=== PATIENT | female | born 1940 | race Caucasian/White ===

== ENCOUNTER 2022-09-05 10:14 | Outpatient (CLI) | payer MEDICARE, SELFPAY ==
[2022-09-05 12:50] LABS: Cholesterol 224 mg/dL (200); Glucose 83 mg/dL (74-106); High Density Lipoprotein 64 mg/dL; Triglycerides 66 mg/dL; Very Low Density Lipoprotein 13 mg/dL (5-40)
== END 2022-09-05 23:59 | disposition home or self-care (01) ==
PROVIDERS: PCP Family Medicine; Referring Provider Family Medicine; Visit Provider Family Medicine
DX: Z13.6 Encounter for screening for cardiovascular disorders (principal)
CPT/HCPCS: 36415; 80061; 82947

== ENCOUNTER → 2022-09-17 | Outpatient (CLI) | payer MEDICARE, SELFPAY ==
--- NOTE | 2022-09-17 13:16 | BI_ITS ---
MAMMOGRAPHY - BILATERAL SCREENING REASON FOR EXAM: Female, 82 years old. Routine annual screening examination. PERTINENT HISTORY: Sister with breast cancer. Mother with breast cancer. TECHNIQUE: Digital bilateral breast maureen (3D mammographic acquisition) in the CC and MLO projections. 2-D mediolateral oblique (MLO) and craniocaudad (CC) views of both breasts were obtained. CAD: Full Field Digital Mammography with Computer Added Detection was performed. COMPARISON: Comparison is made with prior outside examination dated 03/26/2021. FINDINGS: Breast Composition: The breasts are heterogeneously dense, which may obscure small masses. Possible 5.7 mm well-defined nodule in the deep central slightly lateral aspect of the left breast. Correlation with ultrasound is recommended. No other significant abnormalities are identified. BI/SCRN MAMM (CAD)W/MAUREEN BILAT IMPRESSION: Possible 5.7 mm well-defined nodule in the deep central slightly lateral aspect of the left breast. Correlation with ultrasound is recommended. ASSESSMENT CATEGORY: BIRADS Category 0: Incomplete. Need additional imaging evaluation. A letter regarding these results will be sent to the patient by the facility within 30 days. Approximately 10% of breast cancers are not detected by mammography. A normal mammogram should not delay biopsy of a clinically suspicious abnormality. [id number] Electronically Signed: Crow Nolasco MD at 14:42 EST ,
== END | disposition home or self-care (01) ==
LOC: OPBI 13:14
PROVIDERS: PCP Family Medicine; Visit Provider Family Medicine
DX: Z12.31 Encounter for screening mammogram for malignant neoplasm of breast (principal)
CPT/HCPCS: 77063; 77067

== ENCOUNTER → 2022-09-26 | Outpatient (CLI) | payer MEDICARE, SELFPAY ==
--- NOTE | 2022-09-26 13:34 | US_ITS ---
STUDY: ULTRASOUND BREAST - LEFT REASON FOR EXAM: Female, 82 years old. Abnormal screening mammogram. TECHNIQUE: Axial and longitudinal images of the LEFT breast were performed with a high resolution ultrasound transducer. # OF IMAGES: 11 COMPARISON: Comparison is made with prior mammogram dated 09/17/2022. FINDINGS: LEFT Breast: The mammographic abnormality corresponds to a 5 mm x 5 mm x 4 mm cyst at the 3 o''clock position of the breast at 2 cm from the nipple. US/Breast Limited Unilateral IMPRESSION: The mammographic abnormality corresponds to a 5 mm x 5 mm x 4 mm cyst at the 2 o''clock position of the breast at 2 cm from the nipple. ASSESSMENT CATEGORY: BIRADS Category 2: Benign. A letter regarding these results will be sent to the patient by the facility within 30 days. Electronically Signed: Crow Nolasco MD at 14:15 EST ,
== END | disposition home or self-care (01) ==
PROVIDERS: PCP Family Medicine; Visit Provider Family Medicine
DX: R92.8 Other abnormal and inconclusive findings on diagnostic imaging of breast (principal)
CPT/HCPCS: 76642

== ENCOUNTER → 2024-02-05 | Outpatient (CLI) | payer MEDICARE, SELFPAY ==
--- NOTE | 2024-02-05 08:26 | BI_ITS ---
MAMMOGRAPHY - BILATERAL SCREENING 3-D TOMOSYNTHESIS REASON FOR EXAM: Female, 83 years old. screening PERTINENT HISTORY: No significant family history. TECHNIQUE: 2-D mammograms and 3-D Tomosynthesis of the breast (s) were performed. CAD was performed. COMPARISON: 09/17/2022 FINDINGS: The breast composition is heterogeneously dense that can obscure small breast masses. Scattered benign calcifications are seen. No dense spiculated masses or suspicious microcalcifications are identified. No architectural distortion is identified. There is no skin thickening or retraction. There has been no significant change since the prior study. BI/SCRN MAMM (CAD)W/MAUREEN BILAT IMPRESSION: No mammographic signs of malignancy. Routine yearly mammograms recommended. ASSESSMENT CATEGORY: BIRADS Category 1: Negative. A letter regarding these results will be sent to the patient by the facility within 30 days. FOLLOW UP RECOMMENDATION: Yearly follow up mammogram recommended. (A) Approximately 10% of breast cancers are not detected by mammography. A normal mammogram should not delay biopsy of a clinically suspicious abnormality. Electronically Signed: Ant Dawkins MD at 13:36 EDT ,
== END | disposition home or self-care (01) ==
LOC: OPBI 08:25
PROVIDERS: PCP Family Medicine; Referring Provider Family Medicine; Visit Provider Family Medicine
DX: Z12.31 Encounter for screening mammogram for malignant neoplasm of breast (principal)
CPT/HCPCS: 77063; 77067

== ENCOUNTER → 2025-01-17 | Outpatient (CLI) | payer MEDICARE, SELFPAY ==
--- NOTE | 2025-01-17 14:51 | RAD_ITS ---
PROCEDURE: L/S SPINE MIN 4 VIEWS 01/17/2025 REASON FOR EXAM: LOW BACK PAIN TECHNIQUE: Standing AP view(s) of the thoracic and lumbar spine. Five views. COMPARISON: None. 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 Exaggerated lumbar lordosis. There are diffuse spondylotic changes. Findings are demonstrated to by diffuse disc space narrowing, osteophyte formation and degenerative endplate sclerosis. There is diffuse facet joint arthropathy with secondary bilateral neural foramina narrowing. No fracture or dislocation is seen. No aggressive lytic or blastic bony lesion is noted. RAD/L/S Spine Min 4 Views IMPRESSION: Spondylosis. 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 Reading Location: [facility]
[2025-01-17 15:37] LABS: Absolute Lymphocyte Count 2.01 X10^3/uL (0.83-4.51); Absolute Neutrophil Count 4.4 X10^3/uL (2.0-7.7); Basophil# 0.05 X10^3/uL; Basophil% 0.7 % (0-1); Eosinophil# 0.31 X10^3/uL; Eosinophils% 4.1 % (0-5); Hematocrit 43.6 % (37-47); Hemoglobin 14.3 g/dL (12.0-15.0); Lymphocyte # 2.01 X10^3/ul (0.83-4.51); Lymphocyte % 26.8 % (19-41); Mean Corp Hgb Conc 32.8 g/dL (32-36); Mean Corpuscular Hgb 32.4 pg (27.0-32.0); Mean Corpuscular Volume 98.9 fL (81-99); Mean Platelet Vol. 9.8 fl (6.2-12.0); Monocyte# 0.72 X10^3/uL; Monocyte% 9.6 % (0-10); NRBC Flagged by Analyzer 0 % (0-5); Neutrophil # 4.38 X10^3/uL (2.7-7.7); Neutrophil % 58.4 % (47-70); Platelet Count 238 K/mm3 (150-450); RBC Distribution Width SD 47.5 fl (35.1-43.9); Red Blood Count 4.41 M/mm3 (4.2-5.4); White Blood Count 7.5 K/mm3 (4.4-11.0)
[2025-01-17 16:36] LABS: Hepatitis C Antibody Nonreactive (Nonreactive); Vitamin D,25 Hydroxy 37.1 ng/mL (30-100)
[2025-01-17 16:37] LABS: ALB/GLOB Ratio 1.5 RATIO (0.9-2.4); AST(SGOT) 30 U/L (<=31); Alanine Aminotransfer ALT/SGPT 15 U/L (<=34); Albumin, Serum 4.4 g/dL (3.4-4.8); Alkaline Phosphatase 97 U/L (35-104); Anion Gap 11 (5-15); BUN 20 mg/dL (4-19); BUN/Creat Ratio 27.3 RATIO (10-20); Calcium,Total 9.6 mg/dL (7.6-11.0); Chloride 105 mmol/L (98-108); Creatinine, Serum 0.72 mg/dL (0.70-1.20); EST Glomerular Filtration Rate 83 (>60); Globulin 2.9 g/dL (2.2-4.2); Glucose 96 mg/dL (70-99); Potassium 4.3 mmol/L (3.3-5.1); Protein, Total 7.3 g/dL (5.9-8.4); Sodium Level 140 mmol/L (133-145); Total Bilirubin 0.39 mg/dL (0.00-1.30)
== END | disposition home or self-care (01) ==
LOC: RAD 14:49
PROVIDERS: PCP Family Medicine Geriatric Medicine; Referring Provider Family Medicine Geriatric Medicine; Visit Provider Family Medicine Geriatric Medicine
DX: E78.5 Hyperlipidemia, unspecified (principal); E55.9 Vitamin D deficiency, unspecified; M54.50 Low back pain, unspecified; Z78.0 Asymptomatic menopausal state; Z80.3 Family history of malignant neoplasm of breast; Z12.39 Encounter for other screening for malignant neoplasm of breast; Z13.89 Encounter for screening for other disorder
CPT/HCPCS: 36415; 72110; 80053; 82306; 84443; 85025; 86803

== ENCOUNTER 2025-01-27 09:54 | Outpatient (RCR) | payer MEDICARE, SELFPAY ==
--- NOTE | 2025-01-27 11:50 | HP.SP.EVAL ---
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, EGD ~10 years ago (no abnormalities) Medications related to this diagnosis: n/a Smoking Status: Never smoker Diagnosis Diagnosis: Dysphagia, Unspecified Pain Is pain an issue with your current prescribed condition?: No Personal Preferred language: Lao Subjective Dysphagia Symptoms Reported Symptoms/Problems with: Difficulty Swallowing Solids, Difficulty Swallowing Liquids and Food gets stuck Current Diet Solids Current Diet: Regular Current Diet Liquids Current Liquids: Thin Cervantes free water Protocol: No Comments Comments: -: Patient referred to outpatient speech therapy for dysphagia evaluation per PCP due to patient c/o food sticking and coughing after meals. Patient reports symptoms have been persistent for 10 or more years, have not caused anorexia or food avoidances, nor has she lost weight. Patient describes coughing up thick, clear phlegm 10-15 minutes after meals at times, and waking herself up at night by coughing. Patient denies overt s/s reflux, but does acknowledge dry cough and throat clearing which she has attributed to allergies. Patient denies choking episodes, pneumonia, or changes in appetite. Objective Dysphagia Administered by Administered by: Self Thin Liquids Administred via: Cup and Straw Oral Transit: WNL Bolus clearance: fully cleared Gagging: No Cough: none observed/unable to assess Pharyngeal phase: immediate laryngeal elevation Pureed Administered via: Spoon Oral Preparation: WNL Oral Transit: WNL Bolus clearance: fully cleared Cough: none observed/unable to assess Pharyngeal phase: immediate laryngeal elevation Regular Oral Preparation: WNL Oral Transit: WNL Bolus clearance: fully cleared Cough: none observed/unable to assess Pharyngeal phase: immediate laryngeal elevation Patient Report: Stated, I don't have trouble chewing or actually swallowing. Some things just feel like they don't go down all the way, gesturing to mid-sternum. Patient denied globus or sensation of reflux during evaluation and up to end of session, ~ 15 minutes after intake. Recommendations Modified Barium Swallow/Cookie Swallow Recommended: No Swallowing Treatment: No Diet Texture Recommendations Solids: Regular (Level 7) Liquids: Thin (Level 0) Cervantes free water Protocol: No Safety Saftey Precautions/Swallowing Recommendations (Check all that Apply): Upright Position at Least 30 Minutes After Meals, Small Sips & Bites when Eating and Alternate Liquids & Solids Other: GERD precautions Results Swallowing Within Normal Limits: Yes Swallowing Diagnosis: Dysphagia Unspecified (R13.10) Reference: Neuro-QoL instrument Radiation Oncology Patient Plan Plan Plan: ST dysphagia evaluation completed. Patient presents with grossly intact oropharyngeal swallow function with trials of thin water via cup and straw, applesauce, soft cereal fruit bar, and crunchy cookie. No clinical indications of dysphagia evident at this time. Based on patient's report of symptoms and findings during this assessment, MOTION PICTURE NARRATOR suspicious of GERD or esophageal dysphagia. No further ST indicated at this time. MOTION PICTURE NARRATOR recommends referrals for diagnostic imaging such as an Upper GI Series or Barium Swallow. Recommendations Treatment Warranted: No Patient/Family Goal Patient/Family Goal: n/a Education Patient has Indicated that the Following Identified Educational Needs: None The Patient has indicated that they have no educational or learning abilities that may effect their care.: Yes Patient Instruction Patient Education: Diagnosis, Treatment Plan and Diet Level Other Education: GERD management, aspiration associated with GERD, testing options for esophageal disorders Person Taught: Patient Teaching Method: Discussion, Handout and Teach Back Response to teaching: Return Demonstration
== END 2025-01-27 19:00 | disposition home or self-care (01) ==
LOC: SP 09:54
PROVIDERS: PCP Family Medicine Geriatric Medicine; Referring Provider Family Medicine Geriatric Medicine; Visit Provider Family Medicine Geriatric Medicine
DX: T17.928D Food in respiratory tract, part unspecified causing other injury, subsequent encounter (principal)
CPT/HCPCS: 92610

== ENCOUNTER → 2025-02-06 | Outpatient (CLI) | payer MEDICARE, SELFPAY ==
--- NOTE | 2025-02-06 09:00 | RAD_ITS ---
PROCEDURE: UPPER GI DUAL CONTRAST 02/06/2025 REASON FOR EXAM: DYSPAGHIA TECHNIQUE: Double-contrast upper GI series. Fluoroscopy time: 100 seconds. Dose: 21.8 mGy. COMPARISON: None. FINDINGS: Intermittent esophageal spasm is seen. No area of persistent narrowing is noted. A widely patent esophagogastric junction is noted. The stomach and duodenum show no abnormality. During the time of imaging, gastroesophageal reflux was not elicited. RAD/Upper GI Dual Contrast IMPRESSION: 1. Intermittent esophageal spasm. 2. No gastroesophageal reflux was noted. Reading Location: [place] [id number]
== END | disposition home or self-care (01) ==
LOC: RAD 08:45
PROVIDERS: PCP Family Medicine Geriatric Medicine; Referring Provider Family Medicine Geriatric Medicine; Visit Provider Family Medicine Geriatric Medicine
DX: R13.10 Dysphagia, unspecified (principal)
CPT/HCPCS: 74246

== ENCOUNTER → 2025-02-07 | Outpatient (CLI) | payer MEDICARE, SELFPAY ==
--- NOTE | 2025-02-07 07:20 | BI_ITS ---
EXAM: SCRN MAMM (CAD)W/MAUREEN BILAT DATE: 02/07/2025 CLINICAL HISTORY: F, Age 84 y/o , SCREENING TECHNIQUE: SCRN MAMM (CAD)W/MAUREEN BILAT COMPARISON: Prior exam(s) dated 01/28/2024, 09/17/2022. FINDINGS: TISSUE DENSITY: There are scattered areas of fibroglandular density. Bilateral Breast Mammographic Findings: No significant masses, calcifications or other abnormalities are identified. BI/SCRN MAMM (CAD)W/MAUREEN BILAT IMPRESSION: There is no mammographic evidence of malignancy. OVERALL FINAL ASSESSMENT BI-RADS 1: NEGATIVE. RECOMMEND ANNUAL MAMMOGRAPHIC SCREENING. RECOMMENDATION: Routine annual follow-up in 1 Year A letter with findings and recommendations will be mailed to the patient. Reading Location: [id number]
--- OUTSIDE RECORDS SUMMARY | 2025-02-07 07:20 | XMS RPT_ITS | CCD ---
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 Ludin Ellington Primary Care Provider Frantz SMITH, Dr. Ludin Ellington Attending Provider Frantz SMITH, Dr. Ludin Ellington Referring Provider Frantz, Ludin Chi Attending Unavailable Frantz, Ludin Chi Referring Unavailable Frantz, Ludin Chi Primary Care Unavailable Frantz, Ludin Chi Attending Unavailable Frantz, Ludin Chi Referring Unavailable Frantz, Ludin Chi Primary Care Unavailable Frantz, Ludin Chi Attending Unavailable Frantz, Ludin Chi Referring Unavailable Frantz, Ludin Chi Primary Care Unavailable Frantz, Ludin Chi Attending Unavailable Frantz, Ludin Chi Referring Unavailable Frantz, Ludin Chi Primary Care Unavailable Problems Problem Classification Problem Date Documented Da te Episodic/Chronic Disorders of lipid metabolism (1 source) Hyperlipidemia, unspecified; Translations: [Hyperlipidemia, unspecified] Onset: 01-25-2025 Chronic Other gastrointestinal disorders (1 source) Dysphagia, unspecified; Translations: [Dysphagia, unspecified] Onset: 02-06-2025 Episodic Other screening for suspected conditions (not mental disorders or infectious disease) (1 source) Encounter for screening mammogram for malignant neoplasm of breast; Translations: [Encounter for screening mammogram for malignant neoplasm of breast] Onset: 02-03-2025 Episodic Residual codes; unclassified (1 source) Asymptomatic menopausal state; Translations: [Asymptomatic menopausal state] Onset: 02-03-2025 Episodic Results Test Name Value Interpretation Reference Range Facility Upper GI Dual Contraston Upper GI Dual Contrast [facility] Imaging Services [address] [place], [place] [address] Upper GI Dual Contrast MR#: [id number] Acct: [id number] Name: BINA GREENBERG Rep #: [id number] : 1940 F 84 From: Wili Law PCP: Dr. Ludin Landry MD Status: REG CLI Study: Upper GI Dual Contrast Date of Exam: 02/06/25 Exam# [id number] Ordering Dr: Ludin Landry MD PROCEDURE: UPPER GI DUAL CONTRAST 02/06/2025 REASON FOR EXAM: DYSPAGHIA TECHNIQUE: Double-contrast upper GI series. Fluoroscopy time: 100 seconds. Dose: 21.8 mGy. COMPARISON: None. FINDINGS: Intermittent esophageal spasm is seen. No area of persistent narrowing is noted. A widely patent esophagogastric junction is noted. The stomach and duodenum show no abnormality. During the time of imaging, gastroesophageal reflux was not elicited. RAD/Upper GI Dual Contrast IMPRESSION: 1. Intermittent esophageal spasm. 2. No gastroesophageal reflux was noted. Reading Location: [place] [address] CC: Dr. Ludin Landry MD Publisher Assistant: Signed Normal [facility] SP/HP.SP.Suman 01-27-2025 SP/HP.SP.EV [facility] Speech Pathology [facility] [address] [place] [address] [address] [place] [address] / REHABILITATION SERVICES INITIAL EVALUATION MR#: [id number] Acct: [id number] Name: BINA GREENBERG Rep #: [id number] : 1940 84 From: Evy Hampton Referring Dr.: Dr. 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 History Attending Doctor: Referring Doctor: Reason for Referral: ASPIRATION OF FOOD RX HERE Medical Diagnosis: T17.928A Date of Onset of Diagnosis: 01-17-25 Previous speech therapy: No Other Relevant Medical History/Diagnoses/Florentino rgery: Removal of skin cancer, low back pain, Spondylosis, Grade 1 anterolisthesis of L5 on S1 secondary to bilateral pars defects, EGD 10 years ago (no abnormalities) Medications related to this diagnosis: n/a Smoking Status: Never smoker Diagnosis Diagnosis: Dysphagia, Unspecified Pain Is pain an issue with your current prescribed condition?: No Personal Preferred language: Yoruba Subjective Dysphagia Symptoms Reported Symptoms/Problems with: Difficulty Swallowing Solids, Difficulty Swallowing Liquids and Food gets stuck Current Diet Solids Current Diet: Regular Current Diet Liquids Current Liquids: Thin Cervantes free water Protocol: No Comments Comments: -: Patient referred to outpatient speech therapy for dysphagia evaluation per PCP due to patient c/o food sticking and coughing after meals. Patient reports symptoms have been persistent for 10 or more years, have not caused anorexia or food avoidances, nor has she lost weight. Patient describes coughing up thick, clear phlegm 10-15 minutes after meals at times, and waking herself up at night by coughing. Patient denies overt s/s reflux, but does acknowledge dry cough and throat clearing which she has attributed to allergies. Patient denies choking episodes, pneumonia, or changes in appetite. Objective Dysphagia Administered by Administered by: Self Thin Liquids Administred via: Cup and Straw Oral Transit: WNL Bolus clearance: fully cleared Gagging: No Cough: none observed/unable to assess Pharyngeal phase: immediate laryngeal elevation Pureed Administered via: Spoon Oral Preparation: WNL Oral Transit: WNL Bolus clearance: fully cleared Cough: none observed/unable to assess Pharyngeal phase: immediate laryngeal elevation Regular Oral Preparation: WNL Oral Transit: WNL Bolus clearance: fully cleared Cough: none observed/unable to assess Pharyngeal phase: immediate laryngeal elevation Patient Report: Stated, I don't have trouble chewing or actually swallowing. Some things just feel like they don't go down all the way, gesturing to mid-sternum. Patient denied globus or sensation of reflux during evaluation and up to end of session, 15 minutes after intake. Recommendations Modified Barium Swallow/Cookie Swallow Recommended: No Swallowing Treatment: No Diet Texture Recommendations Solids: Regular (Level 7) Liquids: Thin (Level 0) Cervantes free water Protocol: No Safety Saftey Precautions/Swallowi ng Recommendations (Check all that Apply): Upright Position at Least 30 Minutes After Meals, Small Sips Bites when Eating and Alternate Liquids Solids Other: GERD precautions Results Swallowing Within Normal Limits: Yes Swallowing Diagnosis: Dysphagia Unspecified (R13.10) Reference: Neuro-QoL instrument Radiation Oncology Patient Plan Plan Plan: ST dysphagia evaluation completed. Patient presents with grossly intact oropharyngeal swallow function with trials of thin water via cup and straw, applesauce, soft cereal fruit bar, and crunchy cookie. No clinical indications of dysphagia evident at this time. Based on patient's report of symptoms and findings during this assessment, ALTERNATIVE DISPUTE RESOLUTION MEDIATOR suspicious of GERD or esophageal dysphagia. No further ST indicated at this time. ALTERNATIVE DISPUTE RESOLUTION MEDIATOR recommends referrals for diagnostic imaging such as an Upper GI Series or Barium Swallow. Recommendations Treatment Warranted: No Patient/Family Goal Patient/Family Goal: n/a Education Patient has Indicated that the Following Identified Educational Needs: None The Patient has indicated that they have no educational or learning abilities that may effect their care.: Yes Patient Instruction Patient Education: Diagnosis, Treatment Plan and Diet Level Other Education: GERD management, aspiration associated with GERD, testing options for esophageal disorders Person Taught: Patient Teaching Method: Discussion, Handout and Teach Back Response to teaching: Return Demonstration 01/27/25 1150 CC: Dr. Ludin Landry MD TLM Signed Normal [facility] Absolute lymphocyte countOrd ered By: Ludin Landry on 01-17-2025 Lymphocytes Auto (Unsp spec) [#/Vol] 2.01 10*3/uL 0.83-4.51 [facility] Absolute neutrophil countOrd ered By: Ludin Landry on 01-17-2025 Neutrophils (Bld) [#/Vol] 4.4 10*3/uL 2.0-7.7 [facility] Anion gap in Serum or Plasma Ordered By: Ludin Landry on 01-17-2025 Anion gap [Moles/Vol] 11 mmol/L 5-15 [facility] Automated lymphocyte count a s percentage of total leukocytesOrdered By: Ludin Landry on 01-17-2025 Lymphocytes/100 WBC Auto (Unsp spec) 26.8 % - [facility] BUN/creatinine ratioOrdered By: Ludin Landry on 01-17-2025 Urea nitrogen/Creatinine [Mass ratio] 27.3 mg/mg High 10- [facility] Basophil percentageOrdered B y: Ludin Landry on 01-17-2025 Basophils/100 WBC (Bld) 0.7 % 0-[address] [facility] Bilirubin, totalOrdered By: Ludin Landry on 01-17-2025 Bilirubin [Mass/Vol] 0.39 mg/dL 0.00-1.30 [facility] CBC W/Diff, Automatedon 01-08-2024 Absolute Lymph 2.01 X10 3/uL Normal 0.83-4.51 [facility] Comment on above: Performed By: #### L 506.1001, L501.9520, L100.0100, L3890.6301, L500.4050 #### [facility] [address] [place], [address] Absolute Neut 4.4 X10 3/uL Normal 2.0-7.7 [facility] Comment on above: Performed By: #### L 506.1001, L501.9520, L100.0100, L3890.6301, L500.4050 #### [facility] [address] [place], [address] Basophils/100 WBC (Bld) 0.7 % Normal 0-[address] [facility] Comment on above: Performed By: #### L 506.1001, L501.9520, L100.0100, L3890.6301, L500.4050 #### [facility] [address] [place], [address] Eosinophils/100 WBC (Bld) 4.1 % Normal 0-5 [facility] Comment on above: Performed By: #### L 506.1001, L501.9520, L100.0100, L3890.6301, L500.4050 #### [facility] [address] [place], [address] Erythrocyte distribution width (RBC) [Ratio] 13.0 % Normal 11.6-14.6 [facility] Comment on above: Performed By: #### L 506.1001, L501.9520, L100.0100, L3890.6301, L500.4050 #### [facility] [address] [place], [address] Hematocrit (Bld) [Volume fraction] 43.6 % Normal 37-47 [facility] Comment on above: Performed By: #### L 506.1001, L501.9520, L100.0100, L3890.6301, L500.4050 #### [facility] [address] [place], [address] Hemoglobin (Bld) [Mass/Vol] 14.3 g/dL Normal 12.0-15.0 [facility] Comment on above: Performed By: #### L 506.1001, L501.9520, L100.0100, L3890.6301, L500.4050 #### [facility] [address] [place], [address] IG% 0.400 Normal 0.0-0.9 [facility] Comment on above: Result Comment: IG% - Immature Granulocytes (promyelocytes, myelocytes and metamyelocytes) > 1% indicates that a LEFT SHIFT is Present. Performed By: #### L 506.1001, L501.9520, L100.0100, L3890.6301, L500.4050 #### [facility] [address] [place], [address] Lymphocytes/100 WBC (Bld) 26.8 % Normal 19-41 [facility] Comment on above: Performed By: #### L 506.1001, L501.9520, L100.0100, L3890.6301, L500.4050 #### [facility] [address] [place], [address] MCH (RBC) [Entitic mass] 32.4 pg High 27.0-32.0 [facility] Comment on above: Performed By: #### L 506.1001, L501.9520, L100.0100, L3890.6301, L500.4050 #### [facility] [address] [place], [address] MCHC (RBC) [Mass/Vol] 32.8 g/dL Normal 32-36 [facility] Comment on above: Performed By: #### L 506.1001, L501.9520, L100.0100, L3890.6301, L500.4050 #### [facility] [address] [place], [address] MCV (RBC) [Entitic vol] 98.9 fL Normal 81-99 [facility] Comment on above: Performed By: #### L 506.1001, L501.9520, L100.0100, L3890.6301, L500.4050 #### [facility] [address] [place], [address] Monocytes/100 WBC (Bld) 9.6 % Normal 0-10 [facility] Comment on above: Performed By: #### L 506.1001, L501.9520, L100.0100, L3890.6301, L500.4050 #### [facility] [address] [place], [address] Neutrophils/100 WBC (Bld) 58.4 % Normal 47-70 [facility] Comment on above: Performed By: #### L 506.1001, L501.9520, L100.0100, L3890.6301, L500.4050 #### [facility] [address] [place], [address] Nucleated RBC (Bld) [#/Vol] 0 10*3/uL Normal 0-5 [facility] Comment on above: Performed By: #### L 506.1001, L501.9520, L100.0100, L3890.6301, L500.4050 #### [facility] [address] [place], [address] Platelet mean volume (Bld) [Entitic vol] 9.8 fL Normal 6.2-12.0 [facility] Comment on above: Performed By: #### L 506.1001, L501.9520, L100.0100, L3890.6301, L500.4050 #### [facility] [address] [place], [address] Platelets (Bld) [#/Vol] 238 10*3/uL Normal 150-450 [facility] Comment on above: Performed By: #### L 506.1001, L501.9520, L100.0100, L3890.6301, L500.4050 #### [facility] [address] [place], [address] RBC (Bld) [#/Vol] 4.41 10*6/uL Normal 4.2-5.4 [facility] Comment on above: Performed By: #### L 506.1001, L501.9520, L100.0100, L3890.6301, L500.4050 #### [facility] [address] [place], [address] RDW SD 47.5 fl High 35.1-43.9 [facility] Comment on above: Performed By: #### L 506.1001, L501.9520, L100.0100, L3890.6301, L500.4050 #### [facility] [address] [place], [address] WBC (Bld) [#/Vol] 7.5 10*3/uL Normal 4.4-11.0 [facility] Comment on above: Performed By: #### L 506.1001, L501.9520, L100.0100, L3890.6301, L500.4050 #### [facility] [address] [place], [address] Carbon dioxide, total [Moles /volume] in Central venous bloodOrdered By: Lduin Landry on 01-17-2025 CO2 [Moles/Vol] 24.0 mmol/L 21.0-32.0 [facility] Chloride assayOrdered By: Antonio Landry on 01-17-2025 Chloride [Moles/Vol] 105 mmol/L 98-108 [facility] Comprehensive Metabolic Prof ilon 01-17-2025 Albumin [Mass/Vol] 4.4 g/dL Normal 3.4-4.8 [facility] Comment on above: Performed By: #### L 506.1001, L501.9520, L100.0100, L3890.6301, L500.4050 #### [facility] [address] [place], [address] Albumin/Globulin [Mass ratio] 1.5 {ratio} Normal 0.9-2.4 [facility] Comment on above: Performed By: #### L 506.1001, L501.9520, L100.0100, L3890.6301, L500.4050 #### [facility] [address] [place], [address] ALK PHOS 97 U/L Normal 35-104 [facility] Comment on above: Performed By: #### L 506.1001, L501.9520, L100.0100, L3890.6301, L500.4050 #### [facility] [address] [place], [address] ALT [Catalytic activity/Vol] 15 U/L Normal <=34 [facility] Comment on above: Performed By: #### L 506.1001, L501.9520, L100.0100, L3890.6301, L500.4050 #### [facility] [address] [place], [address] AST [Catalytic activity/Vol] 30 U/L Normal <=31 [facility] Comment on above: Performed By: #### L 506.1001, L501.9520, L100.0100, L3890.6301, L500.4050 #### [facility] [address] [place], [address] Bilirubin [Mass/Vol] 0.39 mg/dL Normal 0.00-1.30 [facility] Comment on above: Performed By: #### L 506.1001, L501.9520, L100.0100, L3890.6301, L500.4050 #### [facility] [address] [place], [address] BUN/CRE 27.3 RATIO High 10-20 [facility] Comment on above: Performed By: #### L 506.1001, L501.9520, L100.0100, L3890.6301, L500.4050 #### [facility] [address] [place], [address] Calcium [Mass/Vol] 9.6 mg/dL Normal 7.6-11.0 [facility] Comment on above: Performed By: #### L 506.1001, L501.9520, L100.0100, L3890.6301, L500.4050 #### [facility] [address] [place], [address] Chloride [Moles/Vol] 105 mmol/L Normal 98-108 [facility] Comment on above: Performed By: #### L 506.1001, L501.9520, L100.0100, L3890.6301, L500.4050 #### [facility] [address] [place], [address] CO2 [Moles/Vol] 24.0 mmol/L Normal 21.0-32.0 [facility] Comment on above: Performed By: #### L 506.1001, L501.9520, L100.0100, L3890.6301, L500.4050 #### [facility] [address] [place], [address] Creatinine [Mass/Vol] 0.72 mg/dL Normal 0.70-1.20 [facility] Comment on above: Performed By: #### L 506.1001, L501.9520, L100.0100, L3890.6301, L500.4050 #### [facility] [address] [place], [address] GAP 11 Normal 5-15 [facility] Comment on above: Performed By: #### L 506.1001, L501.9520, L100.0100, L3890.6301, L500.4050 #### [facility] [address] [place], [address] GFR/1.73 sq M.predicted among non-blacks MDRD (S/P/Bld) [Vol rate/Area] 83 mL/min/{1.73_m2} Normal >60 [facility] Comment on above: Result Comment: mL/m in/1.73m2 CKD-EPI Creatinine Equation (2020) Performed By: #### L 506.1001, L501.9520, L100.0100, L3890.6301, L500.4050 #### [facility] [address] [place], [address] Globulin (S) [Mass/Vol] 2.9 g/dL Normal 2.2-4.2 [facility] Comment on above: Performed By: #### L 506.1001, L501.9520, L100.0100, L3890.6301, L500.4050 #### [facility] [address] [place], [address] Glucose [Mass/Vol] 96 mg/dL Normal 70-99 [facility] Comment on above: Performed By: #### L 506.1001, L501.9520, L100.0100, L3890.6301, L500.4050 #### [facility] [address] [place], [address] Potassium [Moles/Vol] 4.3 mmol/L Normal 3.3-5.1 [facility] Comment on above: Result Comment: Hemo lysis present, Results??could be affected. ?? Performed By: #### L 506.1001, L501.9520, L100.0100, L3890.6301, L500.4050 #### [facility] [address] [place], [address] Sodium [Moles/Vol] 140 mmol/L Normal 133-145 [facility] Comment on above: Performed By: #### L 506.1001, L501.9520, L100.0100, L3890.6301, L500.4050 #### [facility] [address] [place], [address] T PROT 7.3 g/dL Normal 5.9-8.4 [facility] Comment on above: Performed By: #### L 506.1001, L501.9520, L100.0100, L3890.6301, L500.4050 #### [facility] [address] [place], [address] Urea nitrogen [Mass/Vol] 20 mg/dL High 4-19 [facility] Comment on above: Performed By: #### L 506.1001, L501.9520, L100.0100, L3890.6301, L500.4050 #### [facility] [address] [place], [address] Eosinophil percentageOrdered By: Ludin Landry on 01-17-2025 Eosinophils/100 WBC (Bld) 4.1 % 0-5 [facility] Erythrocyte distribution wid th ratioOrdered By: Ludin Landry on 01-17-2025 Erythrocyte distribution width (RBC) [Ratio] 13.0 % 11.6-14.6 [facility] Erythrocyte distribution wid th standard deviationOrdered By: Ludin Landry on 01-17-2025 Erythrocyte distribution width (RBC) [Ratio] 47.5 fl High 35.1-43.9 [facility] Glomerular filtration rate ( GFR) estimation/1.73 sq m using serum, plasma, or whole bOrdered By: Ludin Landry on 01-17-2025 GFR/1.73 sq M.predicted among non-blacks MDRD (S/P/Bld) [Vol rate/Area] 83 mL/min/{1.73_m2} >60 [facility] Comment on above: mL/min/1.73m2 CKD-EP I Creatinine Equation (2020) Hematocrit Auto (Bld) [Volum e fraction]Ordered By: Ludin Landry on 01-17-2025 Hematocrit (Bld) [Volume fraction] 43.6 % 37-47 [facility] Hemoglobin measurementOrdere d By: Ludin Landry on 01-17-2025 Hemoglobin (Bld) [Mass/Vol] 14.3 g/dL 12.0-15.0 [facility] Hepatitis C Antibodyon 01-17 Hepatitis C Ab Non-Reactive Normal Nonreactive [facility] Comment on above: Result Comment: Reac tive: Presumptive evidence of antibodies to HCV. Follow CDC recommendations for supplemental testing. Non-Reactive: Antibodies to HCV were not detected; does not exclude the possibility of exposure to HCV Reactive Results are presumptive evidence of antibodies to HCV. Follow CDC recommendations for supplemental testing. Order confirmation testing: HCV Quant by PCR testing - HCVPCR #[id number] Non Reactive: < 0.8 Equivocal: >/= 0.8 to < 1.0 Reactive: >/= 1.0 The CDC requires that a reactive/equivocal HCV antibody result be sent out for confirmation. HCV Quant by PCR testing. Performed By: #### L 506.1001, L501.9520, L100.0100, L3890.6301, L500.4050 #### [facility] [address] [place], [address] Immature granulocytes/100 WB C Auto (Bld)Ordered By: Ludin Landry on 01-17-2025 Immature granulocytes/100 WBC (Bld) 0.400 % 0.0-0.9 [facility] Comment on above: IG% - Immature Granu locytes (promyelocytes, myelocytes and metamyelocytes) > 1% indicates that a LEFT SHIFT is Present. L/S Spine Min 4 Viewson 01-08 L/S Spine Min 4 Views [facility] Imaging Services [address] [place], [place] [address] L/S Spine Min 4 Views MR#: [id number] Acct: [id number] Name: BINA GREENBERG Rep #: [id number] : 1940 F 84 From: Ravi grissom MD PCP: Dr. Ludin Landry MD Status: REG CLI Study: L/S Spine Min 4 Views Date of Exam: 01/17/25 Exam# [id number] Ordering Dr: Ludin Landry MD PROCEDURE: L/S SPINE MIN 4 VIEWS 01/17/2025 REASON FOR EXAM: LOW BACK PAIN TECHNIQUE: Standing AP view(s) of the thoracic and lumbar spine. Five views. COMPARISON: None. 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 Exaggerated lumbar lordosis. There are diffuse spondylotic changes. Findings are demonstrated to by diffuse disc space narrowing, osteophyte formation and degenerative endplate sclerosis. There is diffuse facet joint arthropathy with secondary bilateral neural foramina narrowing. No fracture or dislocation is seen. No aggressive lytic or blastic bony lesion is noted. RAD/L/S Spine Min 4 Views IMPRESSION: Spondylosis. 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 Reading Location: [facility] CC: Dr. Ludin Landry MD Publisher Assistant: Signed Normal [facility] - Chemistry and C hemistry - challengeOrdered By: Ludin Landry on 01-17-2025 AST [Catalytic activity/Vol] 30 U/L <32 [facility] MCV (mean corpuscular volume ) determinationOrdered By: Ludin Landry on 01-17-2025 MCV (RBC) [Entitic vol] 98.9 fL 81-[address] [facility] Mean corpuscular hemoglobin (MCH) determinationOrdered By: Ludin Landry on 01-17-2025 MCH (RBC) [Entitic mass] 32.4 pg High 27.0-32.0 [facility] Mean corpuscular hemoglobin concentration (MCHC) determinationOrdered By: Ludin Landry on 01-17-2025 MCHC (RBC) [Mass/Vol] 32.8 g/dL 32-36 [facility] Mean platelet volume determi nationOrdered By: Ludin Landry on 01-17-2025 Platelet mean volume (Bld) [Entitic vol] 9.8 fL 6.2-12.0 [facility] Monocyte percentageOrdered B y: Ludin Landry on 01-17-2025 Monocytes/100 WBC (Bld) 9.6 % 0-[address] [facility] Neutrophil percentageOrdered By: Ludin Landry on 01-17-2025 Neutrophils/100 WBC (Bld) 58.4 % 47-70 [facility] Nucleated red blood cell per centageOrdered By: Ludin Landry on 01-17-2025 Nucleated RBC/100 WBC (Bld) [Ratio] 0 % 0-5 [facility] Platelet countOrdered By: Antonio Landry on 01-17-2025 Platelets (Bld) [#/Vol] 238 10*3/uL 150-450 [facility] Potassium measurement (mass/ volume)Ordered By: Ludin Landry on 01-17-2025 Potassium (Unsp spec) [Mass/Vol] 4.3 mmol/L 3.3-5.1 [facility] Comment on above: Hemolysis present, R esults could be affected. RBC Auto (Bld) [#/Vol]Ordere d By: Ludin Landry on 01-17-2025 RBC (Bld) [#/Vol] 4.41 10*6/uL 4.2-5.4 [facility] Serum creatinine measurement (mass/volume)Ordered By: Ludin Landry on 01-17-2025 Creatinine [Mass/Vol] 0.72 mg/dL 0.70-1.20 [facility] Serum globulin measurementOr dered By: Ludin Landry on 01-17-2025 Globulin (S) [Mass/Vol] 2.9 g/dL 2.2-4.[address] [facility] Serum glucose measurement (m ass/volume)Ordered By: Ludin Landry on 01-17-2025 Glucose [Mass/Vol] 96 mg/dL 70-99 [facility] Serum or plasma alanine kohler otransferase (ALT) measurementOrdered By: Ludin Landry on 01-17-2025 ALT [Catalytic activity/Vol] 15 U/L <35 [facility] Serum or plasma albumin gabriel urement (mass/volume)Ordered By: Ludin Landry on 01-17-2025 Albumin [Mass/Vol] 4.4 g/dL 3.4-4.8 [facility] Serum or plasma albumin/glob ulin mass ratioOrdered By: Ludin Landry on 01-17-2025 Albumin/Globulin [Mass ratio] 1.5 {ratio} 0.9-2.4 [facility] Serum or plasma alkaline anne sphatase measurementOrdered By: Ludin Landry 01-17-2025 ALP [Catalytic activity/Vol] 97 U/L 35-104 [facility] Serum or plasma calcium gabriel urement (mass/volume)Ordered By: Ludin Landry on 01-17-2025 Calcium [Mass/Vol] 9.6 mg/dL 7.6-11.0 [facility] Serum or plasma urea nitroge n measurement (mass/volume)Ordered By: Ludin Landry 01-17-2025 Urea nitrogen [Mass/Vol] 20 mg/dL High 4-19 [facility] Sodium levelOrdered By: Ludin Landry on 01-17-2025 Sodium [Moles/Vol] 140 mmol/L 133-145 [facility] TSH DL <= 0.005 mIU/L QnOrde red By: Ludin Landry on 01-17-2025 TSH Qn 2.480 uIU/mL 0.300-4.200 [facility] Thyroid Stim Hormone (TSH)on 01-17-2025 TSH 2.480 uIU/mL Normal 0.300-4.200 [facility] Comment on above: Performed By: #### L 506.1001, L501.1820, L100.0100, L3890.6301, L500.4050 #### [facility] [address] [place], [place], [address] Total proteinOrdered By: Ludin Landry on 01-17-2025 Protein [Mass/Vol] 7.3 g/dL 5.9-8.4 [facility] Vitamin D,25 Hydroxyon 01-17 Vitamin D 25-OH 37.1 ng/mL Normal 30-100 [facility] Comment on above: Result Comment: Sienna min D Status Deficiency: <20 ng/mL (50nmol/L) Insufficiency: 20-30 ng/mL (50-75 nmol/L) Sufficiency: 30-100 ng/mL (75-250 nmol/L) Toxicity: >100 ng/mL (>250 nmol/L) Performed By: #### L 506.1001, L501.9520, L100.0100, L3890.6301, L500.4050 #### [facility] [address] [place], [place], [address] White blood cell (WBC) count Ordered By: Ludin Landry on 01-17-2025 WBC (Bld) [#/Vol] 7.5 10*3/uL 4.4-11.0 [facility] CNOVon 07-03-2023 [facility] B[facility]EN[facility] ([id number]) 1940 [address] [facility] Date Time Provider Department 07/03/23 12:45 PM ANTONIO JOHNSON [facility] During your visit today, we recorded the following information about you: Temperature Pulse Respiration Blood pressure 97.8 degrees 93/minute 20/minute 180/104 Weight 70.2 kg Antonio Johnson APRN.CNP 07/03/2023 1:47 PM Signed Subjective HPI HPI Bina Greenberg is a 83 year old female who presents today for CC of sinus pressure, cough. This started 1.5 weeks ago. Has tried otc medication for relief. Symptoms are worsened by nothing. Risk factors sick exposures at home. nonsmoker. .Patient presents with: Cough: Congestion, CISNEROS x 1.5 weeks PAST MEDICAL HISTORY Diagnosis Date Ocular migraine PAST SURGICAL HISTORY Procedure Laterality Date HYSTERECTOMY HX total REMV CATARACT EXTRACAP,INSERT LENS SKIN BX, 1 LESION face ALLERGIES Patient has no known allergies. MEDICATIONS vit C/vit E acet/lutein/min (OCUVITE LUTEIN ORAL) Take by mouth. MULTIVIT-MINERALS/FE RROUS FUM (MULTI VITAMIN ORAL) Take by mouth. calcium carbonate (OS-[place] 500) 500 mg calcium (1,250 mg) tablet Take 1 tablet by mouth once daily. CALCIUM CARBONATE/VITAMIN D3 (VITAMIN D-3 ORAL) Take by mouth. LOW-DOSE ASPIRIN ORAL Take 1 tablet by mouth twice daily. Cetirizine (ZYRTEC) 10 mg cap Take by mouth. FAMILY HISTORY Problem Relation Age of Onset Cancer Mother breast Cancer Father lung Social History Tobacco Use Smoking status: Never Smokeless tobacco: Never Substance Use Topics Alcohol use: No Drug use: No Review of Systems Constitutional: Negative for fever. HENT: Positive for congestion and sinus pain. Negative for ear pain, nosebleeds and sore throat. Respiratory: Positive for cough. Negative for shortness of breath and wheezing. Musculoskeletal: Negative for neck pain. Skin: Negative for itching and rash. Objective Blood pressure 180/104, pulse 93, temperature 36.6 ?C (97.8 ?F), resp. rate 20, weight 70.2 kg (154 lb 12.8 oz), SpO2 96 %. Bp recheck manual by provider. 136/92. Physical Exam Constitutional: General: She is not in acute distress. Appearance: She is not toxic-appearing or diaphoretic. HENT: Head: Normocephalic and atraumatic. Nose: Right Sinus: Maxillary sinus tenderness present. Left Sinus: Maxillary sinus tenderness present. Cardiovascular: Rate and Rhythm: Normal rate and regular rhythm. Heart sounds: Normal heart sounds, S1 normal and S2 normal. Pulmonary: Effort: Pulmonary effort is normal. Breath sounds: Normal breath sounds. Lymphadenopathy: Cervical: No cervical adenopathy. Right cervical: No superficial cervical adenopathy. Left cervical: No superficial cervical adenopathy. Neurological: Mental Status: She is alert and oriented to person, place, and time. Gait: Gait is intact. ASSESSMENT/PLAN: 1. Bacterial sinusitis - ICD9: 473.9, 041.9, ICD10: J32.9, B96.89 - Will begin treatment with as per antibiotic as written, see orders - Supportive care with plenty of fluids, rest, and analgesia prn. - Follow up in 3-5 days if symptoms persist or worsen. -If you experience chest pain/shortness of breath go to ER - DOXYCYCLINE HYCLATE 100 MG TABLET Antonio Johnson APRN.HOMEWORKER Allergies As of Date: 07/03/2023 (No Known Allergies) Date Reviewed: 07/03/2023 Reviewed by: Antonio Johnson APRN.HOMEWORKER - Fully Assessed Reason for Visit: Cough [28] Cmt: Congestion, CISNEROS x 1.5 weeks Primary Visit Diagnosis:Bacterial sinusitis [J32.9, B96.89] Order(s):doxycycline (VIBRA-TABS) 100 mg tabletTake 1 tablet by mouth two times a day for 7 days.Disp: 14 tabletRfl: 0 Prescriptions as of 07/03/2023 - doxycycline (VIBRA-TABS) 100 mg tablet Take 1 tablet by mouth two times a day for 7 days. - vit C/vit E acet/lutein/min (OCUVITE LUTEIN ORAL) Take by mouth. - MULTIVIT-MINERALS/FE RROUS FUM (MULTI VITAMIN ORAL) Take by mouth. - calcium carbonate (OS-[place] 500) 500 mg calcium (1,250 mg) tablet Take 1 tablet by mouth once daily. - CALCIUM CARBONATE/VITAMIN D3 (VITAMIN D-3 ORAL) Take by mouth. - LOW-DOSE ASPIRIN ORAL Take 1 tablet by mouth twice daily. - Cetirizine (ZYRTEC) 10 mg cap Take by mouth. Problem List As Of Date: 07/03/2023 (None) Prescriptions ordered this encounter Disp Refills Start End DOXYCYCLINE HYCLATE 100 MG TABLET 14 t* 0 07/03/2023 07/10/2023 Cmt: May transfer to Hyclate if less expensive. Route: ORAL Sig: Take 1 tablet by mouth two times a day for 7 days. Encounter Status:Closed by ANTONIO JOHNSON on 07/03/23 Normal [facility] Basophil percentageOrdered B y: Aliya Russell on 09-05-2022 Cholesterol [Mass/Vol] 224 mg/dL <200 [facility] Comment on above: <200 mg/dL Desirable 200-240 mg/dL Borderline >240 mg/dL High Risk Glucose [Mass/Vol] 83 mg/dL 74-106 [facility] Triglyceride [Mass/Vol] 66 mg/dL <[address] [facility] Comment on above: The drugs N-Acetylcy steine and Metamizole may falsely depress this assay.Serum Triglycerides Reference Interval Normal <150 mg/dL Borderline high 150 - 199 mg/dL High 200 - 499 mg/dL Very High > or = 500 mg/dL Serum or plasma cholesterol in HDL measurement (mass/volume)Ordered By: Aliya Russell on 09-05-2022 Cholesterol in HDL [Mass/Vol] 64 mg/dL >40 [facility] Comment on above: The drugs N-Acetylcy steine and Metamizole may falsely depress this assay. Reference Range HDL <40 mg/dL Low HDL Cholesterol HDL >or= 60 mg/dL High HDL Cholesterol Serum or plasma cholesterol in VLDL measurement (mass/volume)Ordered By: Aliya Russell on 09-05-2022 Cholesterol in VLDL [Mass/Vol] 13 mg/dL 5-40 [facility] Serum or plasma low density lipoprotein (LDL) cholesterol measurement (mass/volume)Ordered By: Aliya Russell on 09-05-2022 Cholesterol in LDL [Mass/Vol] 147 mg/dL 0-130 [facility] SCREENINGon 03-26-2021 [facility] SCREENING * * *Final Report* * * DATE OF EXAM: Mar 26 2021 11:20AM [facility] [id number] - [facility] SCREENING / PROCEDURE REASON: Encounter for screening mammogram for malignant neoplasm of breast * * * * Physician Interpretation * * * * #[id number] - [facility] SCREENING BILATERAL DIGITAL SCREENING MAMMOGRAM WITH CAD: 03/26/2021 HISTORY: / Screening Mammogram-Patient reports NO symptoms. RESULT: TECHNIQUE: The study was acquired using full field digital technology and interpreted from soft copy. Current study was also evaluated with a Computer Aided Detection (CAD). Comparison is made to exams dated: 04/12/2019 mammogram, 06/30/2018 mammogram, 12/09/2017 mammogram, 06/04/2017 mammogram, 11/13/2016 mammogram, and 11/04/2016 mammogram - [facility]. The tissue of both breasts is heterogeneously dense. This may lower the sensitivity of mammography. No significant masses, calcifications, or other findings are seen in either breast. There has been no significant interval change. IMPRESSION: NEGATIVE There is no mammographic evidence of malignancy. A 1 year screening mammogram is recommended. Stacia spear/tomeka:03/26/2021 12:21:06 Matlab Developer(s): Ghazal Fiore (Ester)(M), [facility] letter sent: Normal over 40 Mammogram BI-RADS: 1 Negative Multiple national specialty organizations have released breast cancer screening guidelines for women at average risk for developing breast cancer - guidelines that are based on both evidence and opinion, yet differ on when to start and how often to screen for breast cancer. With representation from Breast Imaging, Internal Medicine, Women's Health, Family Medicine, and Medical/Surgical Oncology, the [facility] has carefully reviewed the data and reached the following consensus: 1) All women should engage in shared decision-making with their providers to decide when to start and how often to screen; 2) All women should have the opportunity to start screening mammography at age 40; 3) For women ages 45-55, we recommend annual screening mammograms; 4) For women ages 55 and over, we support both the transition from an annual to a biennial interval if this aligns more with patient's values and preferences, or continuation with annual screening; 5) All women should discuss with their providers when to stop screening mammograms. Publisher Assistant: Tomeka Transcribe Date/Time: Mar 26 2021 11:20A Dictated by : STACIA KRUEGER MD This examination was interpreted and the report reviewed and electronically signed by: STACIA KRUEGER MD on Mar 26 2021 12:21PM EST [id number] CN Normal [facility] CBC panel Auto (Bld)on 01-02 Erythrocyte distribution width (RBC) [Ratio] 13.1 % Normal 11.5-15.0 [facility] Comment on above: Order Comment: Speci men Type: BLOOD SPECIMEN Performed By: Ranjeet### 5 8410-2 #### [facility] [place] [facility] CLIA [id number] [address] [place] [address] [facility] Hematocrit (Bld) [Volume fraction] 40.7 % Normal 36.0-46.0 [facility] Comment on above: Order Comment: Speci men Type: BLOOD SPECIMEN Performed By: #### 5 8410-2 #### [facility] [place] [facility] CLIA [id number] [address] [place] [address] [facility] Hemoglobin (Bld) [Mass/Vol] 13.3 g/dL Normal 11.5-15.5 [facility] Comment on above: Order Comment: Speci men Type: BLOOD SPECIMEN Performed By: #### 5 8410-2 #### [facility] [place] [facility] CLIA [id number] [address] [place] [address] [facility] [place] MCH (RBC) [Entitic mass] 32.3 pg Normal 26.0-34.0 [facility] Comment on above: Order Comment: Speci men Type: BLOOD SPECIMEN Performed By: #### 5 8410-2 #### [facility] [place] [facility] CLIA [id number] [address] [place] [address] [place] MCHC (RBC) [Mass/Vol] 32.7 g/dL Normal 30.5-36.0 [facility] Comment on above: Order Comment: Speci men Type: BLOOD SPECIMEN Performed By: #### 5 8410-2 #### [facility] [place] [facility] CLIA [id number] [address] [place] [address] [place] MCV (RBC) [Entitic vol] 98.8 fL Normal 80.0-100.0 [facility] Comment on above: Order Comment: Speci men Type: BLOOD SPECIMEN Performed By: #### 5 8410-2 #### [facility] [place] [facility] CLIA [id number] [address] [place] [address] [place] Platelet mean volume (Bld) [Entitic vol] 10.0 fL Normal 9.0-12.7 [facility] Comment on above: Order Comment: Speci men Type: BLOOD SPECIMEN Performed By: #### 5 8410-2 #### [facility] [place] [facility] CLIA [id number] [address] [place] [address] [place] [facility] Platelets (Bld) [#/Vol] 213 10*3/uL Normal 150-400 [facility] Comment on above: Order Comment: Speci men Type: BLOOD SPECIMEN Performed By: #### 5 8410-2 #### [facility] [place] [facility] CLIA [id number] [address] [place] [address] [place] RBC (Bld) [#/Vol] 4.12 10*6/uL Normal 3.90-5.20 [facility] Comment on above: Order Comment: Speci men Type: BLOOD SPECIMEN Performed By: #### 5 8410-2 #### [facility] [place] [facility] CLIA [id number] [address] [place] [address] [place] WBC (Bld) [#/Vol] 5.58 10*3/uL Normal 3.70-11.00 [facility] Comment on above: Order Comment: Speci men Type: BLOOD SPECIMEN Performed By: #### 5 8410-2 #### [facility] [place] [facility] CLIA [id number] [address] [place] [address] [facility] Comprehensive metabolic 2000 panelon 01-02-2021 Albumin [Mass/Vol] 4.0 g/dL Normal 3.9-4.9 [facility] Comment on above: Order Comment: Speci men Type: BLOOD SPECIMEN Performed By: #### 3 016-3, 39495-6 #### [facility] [place] [facility] CLIA [id number] [address] [place] [address] [facility] [place] ALP [Catalytic activity/Vol] 74 U/L Normal 34-123 [facility] Comment on above: Order Comment: Speci men Type: BLOOD SPECIMEN Performed By: #### 3 016-3, 16590-2 #### [facility] [place] [facility] CLIA [id number] [address] [facility] [place] [address] [place] ALT With P-5'-P [Catalytic activity/Vol] 11 U/L Normal 7-38 [facility] Comment on above: Order Comment: Speci men Type: BLOOD SPECIMEN Performed By: #### 3 016-3, 82955-4 #### [facility] [place] [facility] CLIA [id number] [address] [facility] [place] [address] [place] Anion gap [Moles/Vol] 8 mmol/L Low 9-18 [facility] Comment on above: Order Comment: Speci men Type: BLOOD SPECIMEN Performed By: #### 3 016-3, 77971-3 #### [facility] [place] [facility] CLIA [id number] [address] [facility] [place] [address] [place] AST With P-5'-P [Catalytic activity/Vol] 18 U/L Normal 13-35 [facility] Comment on above: Order Comment: Speci men Type: BLOOD SPECIMEN Performed By: #### 3 016-3, 80362-7 #### [facility] [place] [facility] CLIA [id number] [address] [facility] [place] [address] [place] Bilirubin [Mass/Vol] 0.7 mg/dL Normal 0.2-1.3 [facility] Comment on above: Order Comment: Speci men Type: BLOOD SPECIMEN Performed By: #### 3 016-3, 81597-8 #### [facility] [place] [facility] CLIA [id number] [address] [facility] [place] [address] [place] Calcium [Mass/Vol] 9.3 mg/dL Normal 8.5-10.2 [facility] Comment on above: Order Comment: Speci men Type: BLOOD SPECIMEN Performed By: #### 3 016-3, 18312-2 #### [facility] [place] [facility] CLIA [id number] [address] [facility] [place] [address] [place] Chloride [Moles/Vol] 107 mmol/L High 97-105 [facility] Comment on above: Order Comment: Speci men Type: BLOOD SPECIMEN Performed By: #### 3 016-3, 07706-2 #### [facility] [place] [facility] CLIA [id number] [address] [place] [address] [facility] CO2 [Moles/Vol] 27 mmol/L Normal 22-30 [facility] Comment on above: Order Comment: Speci men Type: BLOOD SPECIMEN Performed By: #### 3 016-3, 34757-3 #### [facility] [place] [facility] CLIA [id number] [address] [place] [address] [place] Creatinine [Mass/Vol] 0.73 mg/dL Normal 0.58-0.96 [facility] Comment on above: Order Comment: Speci men Type: BLOOD SPECIMEN Performed By: #### 3 016-3, #### [facility] [place] [facility] CLIA [id number] [address] [place] [address] [facility] GFR/1.73 sq M.predicted among blacks MDRD (S/P/Bld) [Vol rate/Area] mL/min/{1.73_m2} Normal [facility] Comment on above: Order Comment: Speci men Type: BLOOD SPECIMEN Performed By: #### 3 016-3, 38166-9 #### [facility] [place] [facility] CLIA [id number] [address] [place] [address] [facility] GFR/1.73 sq M.predicted among non-blacks MDRD (S/P/Bld) [Vol rate/Area] mL/min/{1.73_m2} [facility] Comment on above: Order Comment: Speci men Type: BLOOD SPECIMEN Result Comment: eGFR (Estimated GFR) Units of measure: mL/min/1.73 meters squared eGFR is derived from the reexpressed MDRD Study equation using the following parameters: serum creatinine, age, gender and race. The creatinine assay has been calibrated to be traceable to IDMS. An eGFR <60 mL/min/1.73m2 for >3 months is consistent with chronic kidney disease. Refer to KDOQI guidelines for clinical interpretation. In patients with unstable renal function, e.g. those with acute kidney injury, the eGFR may not accurately reflect actual GFR. Performed By: #### 3 016-3, 74665-0 #### [facility] [place] [facility] CLIA [id number] [address] [place] [address] [place] Glucose [Mass/Vol] 96 mg/dL Normal 74-99 [facility] Comment on above: Order Comment: Speci men Type: BLOOD SPECIMEN Result Comment: The [place] Diabetes Association (ADA) provides guidance for cutoff values for fasting glucose and random glucose. The ADA defines fasting as no caloric intake for at least 8 hours. Fasting plasma glucose results between 100 to 125 mg/dL indicate increased risk for diabetes (prediabetes). Fasting plasma glucose results greater than or equal to 126 mg/dL meet the criteria for diagnosis of diabetes. In the absence of unequivocal hyperglycemia, results should be confirmed by repeat testing. In a patient with classic symptoms of hyperglycemia or hyperglycemic crisis, random plasma glucose results greater than or equal to 200 mg/dL meet the criteria for diagnosis of diabetes. Reference: Standards of Medical Care in Diabetes 2016, [place] [employer]. Diabetes Care. 2016.39(Suppl 1). Performed By: #### 3 016-3, 06864-2 #### [facility] [place] [facility] CLIA [id number] [address] [place] [address] [place] Potassium [Moles/Vol] 4.2 mmol/L Normal 3.7-5.1 [facility] Comment on above: Order Comment: Speci men Type: BLOOD SPECIMEN Performed By: #### 3 016-3, 90548-6 #### [facility] [place] [facility] CLIA [id number] [address] [place] [address] [place] Protein [Mass/Vol] 6.3 g/dL Normal 6.3-8.0 [facility] Comment on above: Order Comment: Speci men Type: BLOOD SPECIMEN Performed By: #### 3 016-3, 89333-0 #### [facility] [place] [facility] CLIA [id number] [address] [place] [address] [place] Sodium [Moles/Vol] 142 mmol/L Normal 136-144 [facility] Comment on above: Order Comment: Speci men Type: BLOOD SPECIMEN Performed By: #### 3 016-3, 87452-0 #### [facility] [place] [facility] CLIA [id number] [address] [place] [address] [place] Urea nitrogen [Mass/Vol] 15 mg/dL Normal 7-21 [facility] Comment on above: Order Comment: Speci men Type: BLOOD SPECIMEN Performed By: #### 3 016-3, 33488-3 #### [facility] [place] [facility] CLIA [id number] [address] [place] [address] [place] HCV Ab Ser Qlon 01-02-2021 HCV Ab Ql (S) Negative Normal Negative [facility] Comment on above: Order Comment: Speci men Type: BLOOD SPECIMEN Performed By: #### 1 6128-1 #### [facility] CLIA [id number] [address] [place] [address] LIPID PANEL BASICon 01-03-20 Cholesterol [Mass/Vol] 176 mg/dL Normal <200 [facility] Comment on above: Order Comment: Speci men Type: BLOOD SPECIMEN Result Comment: <200 mg/dL, Desirable 200-239 mg/dL, Borderline high >239 mg/dL, High Performed By: #### L IPB #### [facility] CLIA [id number] [address] [place] [address] [facility] [place] Cholesterol in HDL [Mass/Vol] 58 mg/dL Normal >39 [facility] Comment on above: Order Comment: Speci men Type: BLOOD SPECIMEN Result Comment: 40-5 9 mg/dL, Acceptable >59 mg/dL, High: Negative risk factor for coronary heart disease <40 mg/dL, Low: Positive risk factor for coronary heart disease Performed By: #### L IPB #### [facility] [place] [facility] CLIA [id number] [address] [place] [address] [facility] [place] Cholesterol in LDL [Mass/Vol] 105 mg/dL High <100 [facility] Comment on above: Order Comment: Speci men Type: BLOOD SPECIMEN Result Comment: <100 mg/dL, Optimal 100-129 mg/dL, Near optimal/above optimal 130-159 mg/dL, Borderline high 160-189 mg/dL, High >189 mg/dL, Very high Secondary prevention optimal LDL Cholesterol levels are recommended to be < 70 mg/dL Performed By: #### L IPB #### [facility] [place] [facility] CLIA [id number] [address] [place] [address] [place] Cholesterol in LDL/Cholesterol in HDL [Mass ratio] 1.81 {ratio} Normal <2.54 [facility] Comment on above: Order Comment: Speci men Type: BLOOD SPECIMEN Result Comment: Refe rence: 1. National Cholesterol Education Program ATP III Guideline At-A-Glance Quick Desk Reference: National Heart, Lung, and Blood [place]. National Institutes of Health. 2001: NIH Publication No. 01-3305. 2. An International Atherosclerosis Society position paper: global recommendations for the management of dyslipidemia: executive summary, Atherosclerosis. 2014: 232(2):410-413. Performed By: #### L IPB #### [facility] [place] [facility] CLIA [id number] [address] [place] [address] [facility] Cholesterol in VLDL [Mass/Vol] 13 mg/dL Normal <30 [facility] Comment on above: Order Comment: Speci men Type: BLOOD SPECIMEN Performed By: #### L IPB #### [facility] CLIA [id number] [address] [place] [address] [place] Cholesterol non HDL [Mass/Vol] 118 mg/dL Normal <130 [facility] Comment on above: Order Comment: Speci men Type: BLOOD SPECIMEN Result Comment: <130 mg/dL, Optimal 130-159 mg/dL, Near optimal/above optimal 160-189 mg/dL, Borderline high 190-219 mg/dL, High >219 mg/dL, Very high Secondary prevention optimal non HDL Cholesterol levels are recommended to be <100 mg/dL Performed By: #### L IPB #### [facility] CLIA [id number] [address] [place] [address] [facility] Cholesterol.total/Choles terol in HDL [Mass ratio] 3.03 {ratio} Normal <5.10 [facility] Comment on above: Order Comment: Speci men Type: BLOOD SPECIMEN Performed By: #### L IPB #### [facility] CLIA [id number] [address] [place] [address] [facility] FASTING TIME 12 hrs Normal [facility] Comment on above: Order Comment: Speci men Type: BLOOD SPECIMEN Performed By: #### L IPB #### [facility] CLIA [id number] [address] [place] [address] [facility] Triglyceride [Mass/Vol] 66 mg/dL Normal <150 [facility] Comment on above: Order Comment: Speci men Type: BLOOD SPECIMEN Result Comment: <150 mg/dL, Normal 150-199 mg/dL, Borderline high 200-499 mg/dL, High >499 mg/dL, Very high Performed By: #### L IPB #### [facility] CLIA [id number] [address] [place] [address] [facility] TSH SerPl-aCncon 01-02-2021 TSH Qn 2.190 m[IU]/L Normal 0.270-4.200 [facility] Comment on above: Order Comment: Speci men Type: BLOOD SPECIMEN Performed By: #### 3 016-3, 68114-3 #### [facility] CLIA [id number] [address] [place] [address] [facility] VITAMIN D 25 HYDROXYon 01-02 25-hydroxyvitamin D3 [Mass/Vol] 47.5 ng/mL Normal 30.0-100.0 [facility] Comment on above: Order Comment: Speci men Type: BLOOD SPECIMEN Result Comment: Clas sification of 25 [place] Vitamin D status: Deficiency: < 20 ng/ml. Insufficientcy: 20-30 ng/ml. Sufficiency: 30-100 ng/ml. Performed By: #### V ITD #### [facility] CLIA [id number] [address] [place] [id number] BD DXA - AXIAL SKELETONon BD DXA - AXIAL SKELETON * * *Final Repor t* * * DATE OF EXAM: May 12 2019 10:54AM LDX 0804 - BD DXA - AXIAL SKELETON / PROCEDURE REASON: multiple diagnoses * * * * Physician Interpretation * * * * EXAM TITLE: BONE MINERAL DENSITOMETRY COMPARISON: None CLINICAL INDICATION/HISTORY: Postmenopausal TECHNIQUE: DXA [employer] v,11.4 examination was performed on the forearm and hip. FINDINGS: 1. left forearm BMD is 0.47 g/cm2 which is 87% of peak bone mass compared to young normals which is -1.4 standard deviations relative to the mean of young normals (T-score). According to the World Health Organization criteria, this would be classified as osteopenia. 2. Left hip BMD is 0.84 g/cm2 which is 83% of peak bone mass compared to young normals which is -1.4 standard deviations relative to the mean of young normals (T-score). According to the World Health Organization criteria, this would be classified as osteopenia. 3. Left femoral neck BMD is 0.76 g/cm2 which is 73% of peak bone mass compared to young normals which is -2 standard deviations relative to the mean of young normals (T-score). According to the World Health Organization criteria, this would be classified as osteopenia. IMPRESSION: There is osteopenia within the assessed regions. RELATIVE FRACTURE RISK TABLE NOTE: This table applies to post-menopausal females. T-score Fracture risk 0 average risk for normal 40 year old -1 2 times the normal -2 4 times the normal -3 8 times the normal etc. GENERAL RECOMMENDATIONS FOR PREVENTION OF BONE LOSS: 1. 1200 mg - 1500 mg calcium per day if no history of renal calculi for adults 50 years and over. 2. 800 - 1000 International Units of vitamin D3 per day if no history of renal calculi for adults 50 years and over. 3. Weight bearing exercise 4. Discontinue smoking 5. Avoid excessive use of caffeine, soft drinks, and alcoholic beverages. The National Osteoporosis Foundation recommends that treatment be considered for patients with T-scores of -2 or lower (-1 or lower if patient at high risk for accelerated bone loss). Publisher Assistant: MILAGRO Transcribe Date/Time: May 12 2019 1:36P Dictated by : TRAVON SOLIS MD This examination was interpreted and the report reviewed and electronically signed by: TRAVON SOLIS MD on May 12 2019 1:37PM [facility] DIAGNOSTIC BILon 019 [facility] DIAGNOSTIC ELIO * * *Final Report* * * DATE OF EXAM: Apr 12 2019 2:23PM LDW 0620 - [facility] DIAGNOSTIC ELIO / PROCEDURE REASON: Abnormal mammogram of both breasts * * * * Physician Interpretation * * * * #[id number] - [facility] US BREAST LTD LT #[id number] - [facility] DIAGNOSTIC ELIO BILATERAL DIGITAL DIAGNOSTIC MAMMOGRAM WITH CAD: 04/12/2019 CLINICAL: Six month follow up mammogram. Multiple Diagnoses Followup abnormal ultrasound. Followup abnormal mammogram. Comparison is made to exams dated: 06/30/2018 mammogram, 12/09/2017 mammogram, 06/04/2017 mammogram, 11/13/2016 mammogram, 11/04/2016 mammogram, and 06/04/2017 [facility]. The tissue of both breasts is heterogeneously dense. Current study was also evaluated with a Computer Aided Detection (CAD) system. There is a stable focal asymmetry in the left breast upper outer aspect anterior depth. No other significant masses, calcifications, or other findings are seen in either breast. IMPRESSION: INCOMPLETE: NEEDS ADDITIONAL IMAGING EVALUATION The stable focal asymmetry in the left breast upper outer aspect anterior depth is indeterminate. An ultrasound is recommended. Based on a modified Emily Model, this patient's calculated lifetime risk of developing breast cancer is 16.1%. ULTRASOUND OF LEFT BREAST: 04/12/2019 Comparison is made to exams dated: 06/30/2018 mammogram, 12/09/2017 mammogram, 06/04/2017 mammogram, 11/13/2016 mammogram, 11/04/2016 mammogram, and 06/04/2017 [facility]. Color flow and real-time ultrasound of the left breast were performed. Campuzano scale images of the real-time examination were reviewed. There is a stable benign 0.5 cm x 0.5 cm x 0.4 cm oval mass with a circumscribed margin in the left breast at 2 o'clock middle depth 2 cm from the nipple. This oval mass is hypoechoic. This correlates with mammography findings. Color flow imaging demonstrates that there is no vascularity present. IMPRESSION: BENIGN There is no sonographic evidence of malignancy. The stable 0.5 cm x 0.5 cm x 0.4 cm oval mass in the left breast at 2 o'clock middle depth is consistent with a complicated cyst and is benign. This is stable since 2017 completing 2 years of follow up and in keeping with benignity. A 1 year screening mammogram is recommended. Stacia spear/tomeka:04/12/2019 15:58:45 Matlab Developer(s): Ghazal Fiore (Ester)(M), [facility]; US Qamar, [facility] OVERALL STUDY BIRADS: 2 Benign Publisher Assistant: Tomeka Transcribe Date/Time: Apr 12 2019 1:45P Dictated by : STACIA KRUEGER MD This examination was interpreted and the report reviewed and electronically signed by: STACIA KRUEGER MD on Apr 12 2019 3:58PM EST Normal [facility] US BREAST LTD LTon 04-12 [employer] BREAST LTD LT * * *Final Report* * * DATE OF EXAM: Apr 12 2019 2:33PM LDW 0593 - [employer] BREAST [employer] / PROCEDURE REASON: multiple diagnoses * * * * Physician Interpretation * * * * #[id number] - [employer] BREAST [employer] #[id number] - [facility] DIAGNOSTIC ELIO BILATERAL DIGITAL DIAGNOSTIC MAMMOGRAM WITH CAD: 04/12/2019 CLINICAL: Six month follow up mammogram. Multiple Diagnoses Followup abnormal ultrasound. Followup abnormal mammogram. Comparison is made to exams dated: 06/30/2018 mammogram, 12/09/2017 mammogram, 06/04/2017 mammogram, 11/13/2016 mammogram, 11/04/2016 mammogram, and 06/04/2017 ultrasound - [facility]. The tissue of both breasts is heterogeneously dense. Current study was also evaluated with a Computer Aided Detection (CAD) system. There is a stable focal asymmetry in the left breast upper outer aspect anterior depth. No other significant masses, calcifications, or other findings are seen in either breast. IMPRESSION: INCOMPLETE: NEEDS ADDITIONAL IMAGING EVALUATION The stable focal asymmetry in the left breast upper outer aspect anterior depth is indeterminate. An ultrasound is recommended. Based on a modified Emily Model, this patient's calculated lifetime risk of developing breast cancer is 16.1%. ULTRASOUND OF LEFT BREAST: 04/12/2019 Comparison is made to exams dated: 06/30/2018 mammogram, 12/09/2017 mammogram, 06/04/2017 mammogram, 11/13/2016 mammogram, 11/04/2016 mammogram, and 06/04/2017 ultrasound - [facility]. Color flow and real-time ultrasound of the left breast were performed. Campuzano scale images of the real-time examination were reviewed. There is a stable benign 0.5 cm x 0.5 cm x 0.4 cm oval mass with a circumscribed margin in the left breast at 2 o'clock middle depth 2 cm from the nipple. This oval mass is hypoechoic. This correlates with mammography findings. Color flow imaging demonstrates that there is no vascularity present. IMPRESSION: BENIGN There is no sonographic evidence of malignancy. The stable 0.5 cm x 0.5 cm x 0.4 cm oval mass in the left breast at 2 o'clock middle depth is consistent with a complicated cyst and is benign. This is stable since 2017 completing 2 years of follow up and in keeping with benignity. A 1 year screening mammogram is recommended. Stacia spear/tomeka:04/12/2019 15:58:45 Matlab Developer(s): Ghazal Fiore)(M), [facility]; [employer], [facility] OVERALL STUDY BIRADS: 2 Benign Publisher Assistant: Tomeka Transcribe Date/Time: Apr 12 2019 1:45P Dictated by : STACIA KRUEGER MD This examination was interpreted and the report reviewed and electronically signed by: STACIA KRUEGER MD on Apr 12 2019 3:58PM EST Normal [facility] MAMMOGRAM DIAG WITH CAD IF P ERFORMED BILATERALon 06-30-2018 MAMMOGRAM DIAG WITH CAD IF PERFORMED BILATERAL Performed at [facility] APPROVED BY: STACIA MORENO MD #[id number] - BREAST AXILLA LIMITED UNILATERAL #[id number] - MAMMOGRAM DIAG WITH CAD IF PERFORMED BILATERAL BILATERAL DIGITAL DIAGNOSTIC MAMMOGRAM WITH CAD WITH MEDIOLATERAL OBLIQUE CRANIOCAUDAL SPOT COMPRESSION: 06/30/2018 CLINICAL: Six month follow up mammogram. Due for annual bilateral mammography. Comparison is made to exams dated: 12/09/2017 mammogram, 06/04/2017 mammogram, 11/04/2016 mammogram, 07/19/2015 mammogram, 06/04/2017 ultrasound, and 12/09/2017 ultrasound - [facility]. The tissue of both breasts is heterogeneously dense. Current study was also evaluated with a Computer Aided Detection (CAD) system. There is a stable 5 mm oval mass in the left breast upper outer aspect anterior depth. This is seen in additional views. No other significant masses, calcifications, or other findings are seen in either breast. IMPRESSION: INCOMPLETE: NEEDS ADDITIONAL IMAGING EVALUATION The stable 5 mm oval mass in the left breast upper outer aspect anterior depth is indeterminate. An ultrasound is recommended. Based on a modified Emily Model, this patient's calculated lifetime risk of developing breast cancer is 16.1%. LIMITED ULTRASOUND OF LEFT BREAST: 06/30/2018 Comparison is made to exams dated: 12/09/2017 mammogram, 06/04/2017 mammogram, 11/04/2016 mammogram, 07/19/2015 mammogram, 06/04/2017 ultrasound, and 12/09/2017 ultrasound - [facility]. Color flow and real-time ultrasound of the left breast 2 o'clock region were performed. Campuzano scale images of the real-time examination were reviewed. There is a stable 0.4 cm x 0.6 cm x 0.4 cm oval mass with a circumscribed margin in the left breast at 2 o'clock middle depth. This oval mass is hypoechoic. This correlates with mammography findings. IMPRESSION: PROBABLY BENIGN The stable 0.4 cm x 0.6 cm x 0.4 cm oval mass in the left breast at 2 o'clock middle depth most likely is a complicated cyst and is probably benign. A follow-up ultrasound in 6 months is recommended. A follow-up ultrasound in 6 months is recommended to demonstrate stability. Stacia spear/tomeka:06/30/2018 12:52:55 Matlab Developer(s): Ghazal Fiore)(M), [facility]; Melissa Peralta RDMS, [facility] OVERALL STUDY BIRADS: 3 Probably benign Normal [facility] US BREAST AXILLA LIMITED UNI LATERALon 06-30-2018 US BREAST AXILLA LIMITED UNILATERAL Performed at [facility] APPROVED BY: STACIA MORENO MD #[id number] - US BREAST AXILLA LIMITED UNILATERAL #[id number] - MAMMOGRAM DIAG WITH CAD IF PERFORMED BILATERAL BILATERAL DIGITAL DIAGNOSTIC MAMMOGRAM WITH CAD WITH MEDIOLATERAL OBLIQUE CRANIOCAUDAL SPOT COMPRESSION: 06/30/2018 CLINICAL: Six month follow up mammogram. Due for annual bilateral mammography. Comparison is made to exams dated: 12/09/2017 mammogram, 06/04/2017 mammogram, 11/04/2016 mammogram, 07/19/2015 mammogram, 06/04/2017 ultrasound, and 12/09/2017 [facility] - [facility]. The tissue of both breasts is heterogeneously dense. Current study was also evaluated with a Computer Aided Detection (CAD) system. There is a stable 5 mm oval mass in the left breast upper outer aspect anterior depth. This is seen in additional views. No other significant masses, calcifications, or other findings are seen in either breast. IMPRESSION: INCOMPLETE: NEEDS ADDITIONAL IMAGING EVALUATION The stable 5 mm oval mass in the left breast upper outer aspect anterior depth is indeterminate. An ultrasound is recommended. Based on a modified Emily Model, this patient's calculated lifetime risk of developing breast cancer is 16.1%. LIMITED ULTRASOUND OF LEFT BREAST: 06/30/2018 Comparison is made to exams dated: 12/09/2017 mammogram, 06/04/2017 mammogram, 11/04/2016 mammogram, 07/19/2015 mammogram, 06/04/2017 ultrasound, and 12/09/2017 [facility] - [facility]. Color flow and real-time ultrasound of the left breast 2 o'clock region were performed. Campuzano scale images of the real-time examination were reviewed. There is a stable 0.4 cm x 0.6 cm x 0.4 cm oval mass with a circumscribed margin in the left breast at 2 o'clock middle depth. This oval mass is hypoechoic. This correlates with mammography findings. IMPRESSION: PROBABLY BENIGN The stable 0.4 cm x 0.6 cm x 0.4 cm oval mass in the left breast at 2 o'clock middle depth most likely is a complicated cyst and is probably benign. A follow-up ultrasound in 6 months is recommended. A follow-up ultrasound in 6 months is recommended to demonstrate stability. Stacia spear/tomeka:06/30/2018 12:52:55 Matlab Developer(s): Ghazal Fiore (R)(M), [facility]; Melissa Pearlta RDMS, [facility] OVERALL STUDY BIRADS: 3 Probably benign Normal [facility] Encounters Encounter Date Encounter Type Care Provider Facility Start: 02-07-2025 ambulatory [facility] Facility:[facility] Start: 02-06-2025 ambulatory Ludin [facility] Frantz Facility:[facility] Start: 01-27-2025 End: 01-27-[address] Ludin Landry MD -Speech Therapy Work Phone: Start: 01-27-2025 End: 01-27-[address] Ludin Landry MD Work Phone: [facility] Work Phone: Start: 01-17-2025 End: 01-17-[address] Ludin Lanrdy MD Work Phone: [facility] Work Phone: Start: 01-17-2025 End: 01-17-[address] Ludin Landry MD -Radiology [facility] Work Phone: Start: 01-17-2025 End: 01-17-2025 ambulatory Ludin Landry Facility:[facility] Start: 07-03-2023 End: 07-03-2023 ambulatory SANJANA GRAY Facility:[facility] Start: 09-26-2022 Patient encounter procedure [facility] Ultrasound Start: 09-17-2022 End: 09-17-2022 ambulatory [facility] Work Phone: Start: 09-17-2022 End: 09-17-2022 Patient encounter procedure [facility]-Outpatient Breast Imaging Start: 09-05-2022 End: 09-05-2022 ambulatory [facility] Work Phone: Start: 09-05-2022 End: 09-05-2022 Patient encounter procedure [facility] Procedures Date Procedure Procedure Detail Performing Clinician Start: 01-17-2025 [address] C antibody measurement Dr. Ludin Landry MD Work Phone: Comment on above: Reactive: Presumptiv e evidence of antibodies to HCV. Follow CDC recommendations for supplemental testing.Non-Reactive: Antibodies to HCV were not detected; does not exclude the possibility of exposure to HCVReactive Results are presumptive evidence of antibodies to HCV. Follow CDC recommendations for supplemental testing.Order confirmation testing: HCV Quant by PCR testing - HCVPCR #[id number] Non Reactive: < 0.8 Equivocal: >/= 0.8 to < 1.0 Reactive: >/= 1.0The CDC requires that a reactive/equivocal HCV antibody result be sent out for confirmation. HCV Quant by PCR testing. Start: 01-17-2025 Vitamin D, 25-hydrox y measurement Dr. Ludin Landry MD Work Phone: Comment on above: Vitamin D StatusDefi ciency: <20 ng/mL (50nmol/L)Insufficiency: 20-30 ng/mL (50-75 nmol/L)Sufficiency: 30-100 ng/mL (75-250 nmol/L)Toxicity: >100 ng/mL (>250 nmol/L) Start: 01-17-2025 X-ray of lumbosacral spine Dr. Ludin Landry MD Work Phone: Start: 09-26-2022 Ultrasonography of breast Start: 09-17-2022 Screening mammography Payers Date Payer Category Payer Self-pay 2023 Private Health Insurance [id number] 2017 Medicare [id number] Unknown [id number] Unknown [id number] Unknown [id number] [id number] Unknown [id number] Social History Date Type Detail Facility Tobacco smoking stat [facility] Unknown if ever smoked [facility] Work Phone: Start: 1940 Sex Assigned At Female W [facility] Tobacco smoking stat [facility] Unknown if ever smoked [facility] Work Phone: Start: 01-27-2025 [facility] Radiology Diagnostic study note 01-18-2025 Note Date & Type Note Facility 01-18-2025 Radiology Diagnostic study note [facility] Imaging Services [address] [place] [address] L/S Spine Min 4 Views MR#: [id number] Acct: [id number] Name: BINA GREENBERG Rep #: [id number] : 1940 F 84 From: Delvis Gunn MD PCP: Dr. Ludin Landry MD Status: REG C JEFERSON Study:L/S Spine Min 4 Views Date of Exam: 01/17/25 Exam# [id number] Ordering Dr: Ludin Landry MD PROCEDURE: L/S SPINE MIN 4 VIEWS 01/17/2025 REASON FOR EXAM: LOW BACK PAIN TECHNIQUE: Standing AP view(s) of the thoracic and lumbar spine. Five views. COMPARISON: None. 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 Exaggerated lumbar lordosis. There are diffuse spondylotic changes. Findings are demonstrated to by diffuse disc space narrowing, osteophyte formation and degenerative endplate sclerosis. There is diffuse facet joint arthropathy with secondary bilateral neural foramina narrowing. No fracture or dislocation is seen. No aggressive lytic or blastic bony lesion is noted. RAD/L/S Spine Min 4 Views IMPRESSION: Spondylosis. 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 Reading Location: [facility] [place] [address] CC: Dr. Ludin Landry MD ~ Publisher Assistant: Signed [facility] Progress note 07-03-2023 Note Date & Type Note Facility 07-03-2023 Note HNO ID: [id number] Author: Antonio Johnson APRN.HOMEWORKER Service: ? Author Type: Nurse Practitioner Type: Progress Notes Filed: 07/03/2023 1:47 PM Note Text: Subjective HPI HPI Bina Greenberg is a 83 year old female who presents today for CC of sinus pressure, cough. This started 1.5 weeks ago. Has tried otc medication for relief. Symptoms are worsened by nothing. Risk factors sick exposures at home. nonsmoker. .Patient presents with: Cough: Congestion, CISNEROS x 1.5 weeks PAST MEDICAL HISTORY Diagnosis Date Ocular migraine PAST SURGICAL HISTORY Procedure Laterality Date HYSTERECTOMY HX total REMV CATARACT EXTRACAP,INSERT LENS SKIN BX, 1 LESION face ALLERGIES Patient has no known allergies. MEDICATIONS vit C/vit E acet/lutein/min (OCUVITE LUTEIN ORAL) Take by mouth. MULTIVIT-MINERALS/FERROUS FUM (MULTI VITAMIN ORAL) Take by mouth. calcium carbonate (OS-ALEX[place]RIA 500) 500 mg calcium (1,250 mg) tablet Take 1 tablet by mouth once daily. CALCIUM CARBONATE/VITAMIN D3 (VITAMIN D-3 ORAL) Take by mouth. LOW-DOSE ASPIRIN ORAL Take 1 tablet by mouth twice daily. Cetirizine (ZYRTEC) 10 mg cap Take by mouth. FAMILY HISTORY Problem Relation Age of Onset Cancer Mother breast Cancer Father lung Social History Tobacco Use Smoking status: Never Smokeless tobacco: Never Substance Use Topics Alcohol use: No Drug use: No Review of Systems Constitutional: Negative for fever. HENT: Positive for congestion and sinus pain. Negative for ear pain, nosebleeds and sore throat. Respiratory: Positive for cough. Negative for shortness of breath and wheezing. Musculoskeletal: Negative for neck pain. Skin: Negative for itching and rash. Objective Blood pressure 180/104, pulse 93, temperature 36.6 ?C (97.8 ?F), resp. rate 20, weight 70.2 kg (154 lb 12.8 oz), SpO2 96 %. Bp recheck manual by provider. 136/92. Physical Exam Constitutional: General: She is not in acute distress. Appearance: She is not toxic-appearing or diaphoretic. HENT: Head: Normocephalic and atraumatic. Nose: Right Sinus: Maxillary sinus tenderness present. Left Sinus: Maxillary sinus tenderness present. Cardiovascular: Rate and Rhythm: Normal rate and regular rhythm. Heart sounds: Normal heart sounds, S1 normal and S2 normal. Pulmonary: Effort: Pulmonary effort is normal. Breath sounds: Normal breath sounds. Lymphadenopathy: Cervical: No cervical adenopathy. Right cervical: No superficial cervical adenopathy. Left cervical: No superficial cervical adenopathy. Neurological: Mental Status: She is alert and oriented to person, place, and time. Gait: Gait is intact. ASSESSMENT/PLAN: 1. Bacterial sinusitis - ICD9: 473.9, 041.9, ICD10: J32.9, B96.89 - Will begin treatment with as per antibiotic as written, see orders - Supportive care with plenty of fluids, rest, and analgesia prn. - Follow up in 3-5 days if symptoms persist or worsen. -If you experience chest pain/shortness of breath go to ER - DOXYCYCLINE HYCLATE 100 MG TABLET Antonio Johnson APRN.CNP [facility] Evaluation note Note Date & Type Note Facility Evaluation note No assessment information availa ble [facility] Work Phone: Reason for referral (narrative) Note Date & Type Note Facility Reason for referral (narrative) No reason for referral information available [facility] Work Phone: Summary Purpose Family History No Family History Records FoundNo Family History Records FoundNo Family History Records FoundNo Family History Records Found Advance Directives No Advanced Directives Records FoundNo Advanced Directives Records FoundNo Advanced Directives Records FoundNo Advanced Directives Records Found Chief Complaint and Reason for Visit Chief Complaint SCREENING Chief Complaint SCREENING ABNORMAL MAMMOGRAM Chief Complaint Admit Date ASPIRATION OF FOOD RX HERE January 27 9:54am Additional Source Comments INFORMATION SOURCE (unrecogn ized section and content) DATE CREATED AUTHOR 05/12/2019 [facility] DATE CREATED AUTHOR AUTHOR'S ORGANIZ ATION 03/28/2021 [facility] DATE CREATED AUTHOR AUTHOR'S ORGANIZ ATION 07/05/2023 [facility] [facility] DATE CREATED AUTHOR AUTHOR'S ORGANIZ ATION 02/06/2025 [facility] Care Teams (unrecognized sec tion and content) Team Status: Active Member Role Status Dates Aliya Russell DO Primary Care Provider Active Team Status: Inactive Member Role Status Dates Aliya Russell DO Primary Care Provi massiel, Attending Provider, Referring Provider Active Team Status: Active Member Role Status Dates Aliya Russell DO Primary Care Provider, Attending Provider Active Team Status: Inactive Member Role Status Dates Aliya Russell DO Primary Care Provider, Attending Provider Active Team Status: Active Member Role Status Dates Dr. Ludin Landry MD Primary Care Provider Active Team Status: Inactive Member Role Status Dates Dr. Ludin Landry MD Primary Care Provider Active Start: January 17, 2025 End: January 17, 2025 Dr. Ludin Landry MD Attending Provider Active Start: January 17, 2025 End: January 17, 2025 Dr. Ludin Landry MD Referring Provider Active Start: January 17, 2025 End: January 17, 2025 Team Status: Inactive Member Role Status Dates Dr. Ludin Landry MD Primary Care Provider Active Start: January 27, 2025 End: January 27, 2025 Dr. Ludin Landry MD Attending Provider Active Start: January 27, 2025 End: January 27, 2025 Dr. Ludin Landry MD Referring Provider Active Start: January 27, 2025 End: January 27, 2025 Goals (unrecognized section and content) Goals may be documented in a n alternate sectionGoals may be documented in an alternate sectionGoals may be documented in an alternate sectionGoals may be documented in an alternate section FOR RECORDS PERTAINING TO PATIENTS WHO ARE OR HAVE BEEN ENROLLED IN A CHEMICAL DEPENDENCY/SUBSTANCEABUSE PROGRAM, SOME INFORMATION MAY BE OMITTED. This clinical summary was aggregated from multiple sources. Caution should be exercised in using it in the provision of clinical care. This summary normalizes information from multiple sources, and as a consequence, information in this document may materially change the coding, format and clinical context of patient data. In addition, data may be omitted in some cases. CLINICAL DECISIONS SHOULD BE BASED ON THE PRIMARY CLINICAL RECORDS. [employer] provides no warranty or guarantee of the accuracy or completeness of information in this document.
== END | disposition home or self-care (01) ==
LOC: OPBD 07:18 → OPBI 07:19
PROVIDERS: PCP Family Medicine Geriatric Medicine; Referring Provider Family Medicine Geriatric Medicine; Visit Provider Family Medicine Geriatric Medicine
DX: Z12.31 Encounter for screening mammogram for malignant neoplasm of breast (principal)
CPT/HCPCS: 77063; 77067

== ENCOUNTER → 2025-03-01 | Outpatient (CLI) | payer MEDICARE, SELFPAY ==
--- NOTE | 2025-03-01 09:57 | BD_ITS ---
PROCEDURE: DEXA BONE DENSITY STUDY 03/01/2025 REASON FOR EXAM: F, age 84 y/o . Postmenopausal. TECHNIQUE: DEXA BONE DENSITY STUDY COMPARISON: None available FINDINGS: BMD and T-SCORES Lumbar spine: 0.982 g/cm2, T-score -1.1 Levels: L1 through L4 Left femoral neck: 0.536 g/cm2, T-score -2.8 Femoral neck comparison data not recommended for monitoring change. BD/Dexa Bone Density Study IMPRESSION: Patient's bone density reveals osteoporosis with an estimated 10 year risk for hip fracture of 10% and for a Major osteoporotic fracture of 29%. This fracture risk estimate was calculated using FRAX version 3.08. Reading Location: [id number]
== END | disposition home or self-care (01) ==
LOC: OPBD 09:52
PROVIDERS: PCP Family Medicine Geriatric Medicine; Referring Provider Family Medicine Geriatric Medicine; Visit Provider Family Medicine Geriatric Medicine
DX: Z13.820 Encounter for screening for osteoporosis (principal); Z78.0 Asymptomatic menopausal state; Z12.31 Encounter for screening mammogram for malignant neoplasm of breast; Z80.3 Family history of malignant neoplasm of breast
CPT/HCPCS: 77080

== ENCOUNTER → 2025-07-19 | Outpatient (CLI) | payer MEDICARE, SELFPAY ==
[2025-07-19 13:16] LABS: Hematocrit 43.6 % (37-47); Hemoglobin 14.6 g/dL (12.0-15.0); Immature Granulocytes Count 0.020 X10^3/uL (0.0-0.0); Mean Corp Hgb Conc 33.5 g/dL (32-36); Mean Corpuscular Volume 98.2 fL (81-99); Mean Platelet Vol. 9.6 fl (6.2-12.0); NRBC Flagged by Analyzer 0 % (0-5); Platelet Count 262 K/mm3 (150-450); RBC Distribution Width CV 13.2 % (11.6-14.6); RBC Distribution Width SD 47.9 fl (35.1-43.9); Red Blood Count 4.44 M/mm3 (4.2-5.4); White Blood Count 7.2 K/mm3 (4.4-11.0)
[2025-07-19 13:41] LABS: AST(SGOT) 23 U/L (<=31); Alanine Aminotransfer ALT/SGPT 13 U/L (<=34); Albumin, Serum 4.2 g/dL (3.4-4.8); Alkaline Phosphatase 71 U/L (35-104); Anion Gap 10 (5-15); BUN 21 mg/dL (4-19); BUN/Creat Ratio 29.1 RATIO (10-20); Calcium,Total 9.5 mg/dL (7.6-11.0); Carbon Dioxide 26.5 mmol/L (21.0-32.0); Chloride 106 mmol/L (98-108); Globulin 2.8 g/dL (2.2-4.2); Glucose 97 mg/dL (70-99); Potassium 3.9 mmol/L (3.3-5.1); Vitamin D,25 Hydroxy 34.3 ng/mL (30-100)
[2025-07-19 20:59] LABS: Xtra Tube Kwok EXTRA TUBE
== END | disposition home or self-care (01) ==
LOC: POLAB3 12:58
PROVIDERS: PCP Family Medicine Geriatric Medicine; Visit Provider Family Medicine Geriatric Medicine
DX: I10 Essential (primary) hypertension (principal); E55.9 Vitamin D deficiency, unspecified
CPT/HCPCS: 36415; 80053; 82306; 84443; 85025